=== PATIENT | male | born 1945 | race Caucasian/White ===

== ENCOUNTER 2018-10-26 00:34 | Inpatient (IN) ==
[2018-10-26] MEDS ORDERED: DUONEB (A & A) INH ONE (01:19)
--- NOTE | 2018-10-26 01:28 | PROVIDER DOCUMENTATION ---
This chart was entered by Nandini Blanc Scribe, acting as scribe for Ajit Minor MD. HPI-Rash/Wound/ReCheck - General Chief Complaint: Shortness of Breath Stated Complaint: SOB/CHF/COPD Time Seen by Provider: 10/26/18 01:08 Source: patient Allergies/Adverse Reactions: Allergies Allergy/AdvReac Type Severity Reaction Status Date / Time codeine Allergy Unknown VOMITING Verified 10/24/18 10:20 carvedilol [From Coreg] Allergy ANAPHYLAXIS Verified 10/24/18 10:20 levofloxacin [From Levaquin] Allergy HIVES Verified 10/24/18 10:20 doxycycline AdvReac NAUSEA/VOMI Verified 10/24/18 10:20 TING Home Medications: Home Medication List Medication Instructions Recorded Confirmed Last Taken Type Prednisone 10 mg PO DAILY 01/14/15 10/26/18 01/20/16 History Spironolactone [Aldactone] 25 mg PO DAILY #30 tablet 05/04/17 10/26/18 Unknown Rx Azithromycin [Zithromax] 500 mg PO DAILY #7 tab 10/24/18 10/26/18 Unknown Rx Apixaban [Eliquis] 5 mg PO BID 10/26/18 10/26/18 Unknown History Bisoprolol Fumarate 10 mg PO BID 10/26/18 10/26/18 Unknown History Ezetimibe 10 mg PO DAILY 10/26/18 10/26/18 Unknown History Montelukast Sodium 10 mg PO DAILY 10/26/18 10/26/18 Unknown History Simvastatin 80 mg PO DAILY 10/26/18 10/26/18 Unknown History - History of Present Illness-Dermatology Nature of Presenting Problem: 73 yom with history of atrial fibrillation, CAD, COPD,tobacco abuse (2ppd), and HTN complaining of worsening sob,fever, and productive yellow cough. pt was seen [address] grady and dx w/copd exacerbation. pt was given steroid and zpack and has had no relief. pt uses nebulizer but no home o2. pt pcp is dr. jaimes. pt denies nvd, chills and cp. Review of Systems - Adult - REVIEW OF SYSTEMS - ADULT Constitutional: reports: see HPI, chills, fever (low grade). denies: fatique, night sweats Eyes: reports: no symptoms reported. denies: dry eyes, double vision, eye pain Ears, Nose, Mouth & Throat: reports: no symptoms reported. denies: ear discharge, ear pain, sinus problem, throat pain, throat swelling Cardiovascular: reports: no symptoms reported. denies: chest pain, heart murmur, poor circulation Respiratory: reports: see HPI, cough, excessive sputum production, shortness of breath Gastrointestinal: reports: no symptoms reported Genitourinary: reports: no symptoms reported Musculoskeletal: reports: no symptoms reported Integumentary: reports: no symptoms reported Neurological: reports: no symptoms reported Psychiatric: reports: no symptoms reported Endocrine: reports: no symptoms reported Hematologic/Lymphatic: reports: no symptoms reported Allergic/Immunologic: reports: no symptoms reported All Other Systems: Reviewed and Negative Past History - Adult - PAST MEDICAL HISTORY-ADULT Review of Records: reports: Old Records Reviewed, Nursing Assessment Review, Medications Reviewed, Social history reviewed & non-contributory. Major Childhood Illnesses: reports: denies history Cardiovascular: reports: A-Fib, arrhythmia (Irregular, irregular), CAD, HTN, hyperlipidemia Respiratory: reports: COPD Gastrointestinal: reports: GERD Obstetrical/Gynecological: reports: denies history Genitourinary: reports: denies history Musculoskeletal: reports: other (neuropathy in bilateral hands and feet) Neurological: reports: denies history Psychiatric: reports: denies history Endocrine/Immune: reports: denies history Other Conditions: reports: denies history - PRIOR SURGERIES/PROCEDURES Surgical/Procedure History: reports: CABG, orthopedic (extremity), back/neck - IMMUNIZATION STATUS Childhood Immunizations: See Nurse Assessment Flu Vaccine: See Nurse Assessment - FAMILY HISTORY Family History: reviewed, not pertinent - SOCIAL HISTORY Smoking: cigarettes, greater than 1 pack/day Provider spent 3-5 mins advising pt. on dangers of tobacco.: Discussed manners to quit use, and f/u contacts for add'l counseling. Substance Use: alcohol Alcohol Use Frequency: occasionally Physical Exam-General - PHYSICAL EXAM-ADULT Initial Vital Signs Reviewed: Yes - CONSTITUTIONAL General Appearance: alert, mild distress, other (nondiaphoretic). negative: slow to respond, obtunded, combative - EYES Eyes: PERRL/EOMI, pink conjunctivae - HEAD, EARS, NOSE, MOUTH & THROAT HENMT: normocephalic/atraumatic, moist mucous membranes, normal ENT inspection - NECK Neck: non-tender, full range of motion, supple, normal inspection - RESPIRATORY Respiratory: chest non-tender, no pleuratic chest pain, no respiratory distress, no accessory muscle use, wheezing (diffused bilat). negative: lungs clear, accessory muscle use, crackles, rales - CARDIOVASCULAR Cardiovascular: normal peripheral pulses, regular rate, rhythm - GASTROINTESTINAL (ABDOMEN) Abdominal Exam: normal bowel sounds, non tender, soft - LYMPHATIC Lymphatic: no adenopathy - MUSCULOSKELETAL Back Exam: normal inspection, no CVA tenderness, no vertebral tenderness Extremity: normal range of motion, non-tender, normal inspection Peripheral Pulses: radial (R): 2+, radial (L): 2+ - SKIN Integumentary: normal color, normal turgor, warm/dry - NEUROLOGIC Neurologic: grossly normal, no motor/sensory deficits - PSYCHIATRIC Psych/Mental Status: normal thought content, normal thought process, oriented x 3, anxious Progress - PLAN OF CARE/RESULTS Progress/Plan/Lab Results: Vital Signs - 8 hr 10/26/18 00:45 10/26/18 01:00 10/26/18 01:03 Temperature 99.4 F Pulse Rate 104 H 107 H 101 H Respiratory Rate 20 13 31 H Blood Pressure 159/79 105/61 123/60 O2 Sat by Pulse Oximetry 88 L 91 L 92 L 10/26/18 01:10 10/26/18 01:20 10/26/18 01:30 Temperature Pulse Rate 104 H 105 H 94 H Respiratory Rate 28 H 34 H 30 H Blood Pressure O2 Sat by Pulse Oximetry 94 L 95 94 L 10/26/18 01:48 10/26/18 01:49 10/26/18 01:51 Temperature Pulse Rate 109 H 94 H 104 H Respiratory Rate 20 29 H Blood Pressure 144/75 O2 Sat by Pulse Oximetry 93 L 94 L 10/26/18 02:00 10/26/18 02:03 10/26/18 02:10 Temperature Pulse Rate 112 H 103 H 111 H Respiratory Rate 32 H 31 H 24 Blood Pressure 139/85 O2 Sat by Pulse Oximetry 92 L 93 L 93 L 10/26/18 02:20 10/26/18 02:22 10/26/18 02:30 Temperature Pulse Rate 115 H 85 137 H Respiratory Rate 23 16 32 H Blood Pressure O2 Sat by Pulse Oximetry 98 93 L 97 10/26/18 02:40 10/26/18 02:50 10/26/18 03:00 Temperature Pulse Rate 165 H 154 H Respiratory Rate 30 H Blood Pressure O2 Sat by Pulse Oximetry 92 L 91 L 93 L 10/26/18 03:03 10/26/18 03:10 Temperature Pulse Rate 121 H 118 H Respiratory Rate 33 H 31 H Blood Pressure 142/81 O2 Sat by Pulse Oximetry 94 L 94 L 10/26/18 02:11 Influenza Screen - Final Nasopharyngeal Laboratory Results - last 24 hr 10/26/18 10/26/18 10/26/18 02:00 02:11 02:11 WBC 14.83 H RBC 4.63 L Hgb 15.0 Hct 45.0 MCV 97.2 MCH 32.4 H MCHC 33.3 RDW Std Deviation 12.5 Plt Count 291 MPV 8.9 Immature Gran % (Auto) 0.4 Neut % (Auto) 81.6 H Lymph % (Auto) 8.8 L [place] % (Auto) 9.1 Eos % (Auto) 0.0 Baso % (Auto) 0.1 Immature Gran # (Auto) 0.06 H Neut # (Auto) 12.10 H Lymph # (Auto) 1.30 [place] # (Auto) 1.35 H Eos # (Auto) 0.00 Baso # (Auto) 0.02 Specimen Type ARTERIAL Sample Site R RADIAL pH 7.45 pCO2 37 pO2 59 L HCO3 26.2 H Base Excess 1.9 Oxyhemoglobin 89.6 L* ABG O2 Sat (Calculated) 18.5 ABG O2 Saturation 93.2 L ABG Carboxyhemoglobin 3.50 H ABG Methemoglobin 0.4 Taco Test YES A-a O2 Difference 94.0 Total Hemoglobin 14.7 Lactate 1.40 Liter Flow 2.0 Blood Gas Modality CANNULA FiO2 % 28.0 Sodium 135 L Potassium 4.7 D Chloride 96 L Carbon Dioxide 25 Anion Gap 14 BUN 23 H Creatinine 1.0 Estimated GFR/1.73 m2 > 60 BUN/Creatinine Ratio 23 Glucose 115 H Calculated Osmolality 275 Calcium 9.2 Total Bilirubin 1.08 H AST 33 ALT 26 Alkaline Phosphatase 64 Creatine Kinase 113 Troponin T Total Protein 7.0 Albumin 4.1 Globulin 2.9 Albumin/Globulin Ratio 1.4 10/26/18 02:11 WBC RBC Hgb Hct MCV MCH MCHC RDW Std Deviation Plt Count MPV Immature Gran % (Auto) Neut % (Auto) Lymph % (Auto) [place] % (Auto) Eos % (Auto) Baso % (Auto) Immature Gran # (Auto) Neut # (Auto) Lymph # (Auto) [place] # (Auto) Eos # (Auto) Baso # (Auto) Specimen Type Sample Site pH pCO2 pO2 HCO3 Base Excess Oxyhemoglobin ABG O2 Sat (Calculated) ABG O2 Saturation ABG Carboxyhemoglobin ABG Methemoglobin Taco Test A-a O2 Difference Total Hemoglobin Lactate Liter Flow Blood Gas Modality FiO2 % Sodium Potassium Chloride Carbon Dioxide Anion Gap BUN Creatinine Estimated GFR/1.73 m2 BUN/Creatinine Ratio Glucose Calculated Osmolality Calcium Total Bilirubin AST ALT Alkaline Phosphatase Creatine Kinase Troponin T < 0.010 Total Protein Albumin Globulin Albumin/Globulin Ratio Orders Category Date Time Status CHEST-2 VIEWS [RAD] Stat Exams 10/26/18 01:17 Taken ABG [RESP] Routine Lab 10/26/18 02:00 Completed BLOOD CULTURE [BLDCUL] Stat Lab 10/26/18 01:30 Results BNP [PRO B-NATRIURETIC PEPTIDE] Stat Lab 10/26/18 02:11 Received CBC WITH ELECTRONIC DIFF [HEME] Stat Lab 10/26/18 02:11 Completed CK PROFILE [SP CHEM] Stat Lab 10/26/18 02:11 Completed CMP [COMPREHENSIVE METABOLIC PANEL] [CHEM] Stat Lab 10/26/18 02:11 Completed INFLUENZA SCREEN A/B Stat Lab 10/26/18 02:11 Completed TROPONIN T Stat Lab 10/26/18 02:11 Completed Albuterol 2.5MG/Ipratrop 0.5MG [Duoneb (A & A)] Med 10/26/18 01:19 Discontinued 3 ml INH NOW ONE CefTRIAXONE [Rocephin] 1 gm Med 10/26/18 02:50 Discontinued 0.9% Sodium Chloride Inj [Ns] 50 ml IV NOW Diltiazem [Cardizem] Med 10/26/18 02:52 Discontinued 10 mg IV NOW ONE Magnesium Sulfate 1 gm/D5w Med 10/26/18 02:46 Active 1 gm in 100 ml IV NOW Methylprednisolone Sod Succ [Solu-Medrol] Med 10/26/18 02:28 Discontinued 125 mg IV NOW ONE Aerosol Treatments Routine Oth 10/26/18 01:19 Completed Aerosol Treatments Stat Oth 10/26/18 01:19 Completed Oxygen Device Stat Oth 10/26/18 02:47 Active EKG [EKG] Stat Ther 10/26/18 01:18 Ordered EKG [EKG] Stat Ther 10/26/18 02:51 Ordered Result Diagrams: 10/26/18 02:11 10/26/18 02:11 - REASSESSMENT Reassessment #1 Time Reassessed: 02:45 Status: worsening Reassessment Comment: patient has developed worsening atrial fib with rvr, IV cardizem ordered. - EKG 1 Time of EKG reading by physician:: 00:47 EKG Read and Signed by:: Ajit Minor EKG Interpretation (*Must complete 3 of following elements*): Abnormal Rate: 107 Rhythm: Afib w/rvr [place]: normal QRS: normal ST Wave: non-specific ST changes (non specific st and t wave abnormality) - XRAY 1 XRAY Study: Chest XRAY Interpretation: new nodular infiltrate over right upper lung compared to 10/24/18 - CONSULTS/PCP/HOSPITALIST Notification #1 *Consult/PCP/Hospitalist*: Dr. Combs, hospitalist Time Discussed: 03:20 Consult Disposition: Admit Departure - Departure Date of Disposition Decision: 10/26/18 Time of Disposition Decision: 03:24 DIAGNOSIS: Acute exacerbation of chronic obstructive pulmonary disease, Atrial fibrillat ion with RVR, Failure of outpatient treatment Fever Qualifiers: Fever type: unspecified Qualified Code(s): R50.9 - Fever, unspecified Disposition: ADMITTED INPATIENT 09 Certified Medical Emergency: Emergent Condition: Stable Referrals and Follow-Ups: Kenny Jaimes MD [Primary Care Provider] - - Critical Care Note This patient required my direct & personal management of CC.: Yes Attestation - Physician/ JAMAL Attestation Patient care was provided by Advanced Practice Provider:: No The physician spent face to face time with patient:: Yes Advanced Practice Provider documentation review:: Supervising physician onsite and consulted in the evaluation and care of this patient. The physician did have a face to face encounter with the patient. This chart was documented by the indicated scribe, (Nandini Blanc Scribe) and accurately reflects the services I performed and decisions made by me, Ajit Minor MD, as attested by the provider's signature.
[2018-10-26 02:15] LABS: ALLEN TEST YES; BE 1.9 mmoll (-3.0-3.0); BLOOD TYPE ARTERIAL; HCO3-(ACT) 26.2 mmoll (20.0-26.0); METHB 0.4 % (0.0-1.5); O2(CT) 18.5 mL/dL (15.0-23.0); PCO2(98.6) 37 mmHg (35-45); PO2(98.6) 59 mmHg (60-100); SAMPLE BLOOD; SAO2 93.2 % (95.0-100.0); THB 14.7 g/dL (11.5-17.4); pH(98.6) 7.45 (7.35-7.45)
[2018-10-26 02:17] LABS: MODALITY CANNULA
[2018-10-26 02:18] LABS: O2HB 89.6 % (95.0-99.0)
[2018-10-26] MEDS ORDERED: SOLU-MEDROL IV ONE (02:28)
[2018-10-26 02:31] LABS: BASO# 0.02 X1000 (0.0-0.2); BASO% 0.1 % (0.0-0.8); IMM GRAN# 0.06 X1000 (0.0-0.04); IMM GRAN% 0.4 % (0.0-0.5); LYMPH% 8.8 % (20.5-51.1); MCH 32.4 PG (27-31); MCHC 33.3 g/dL (33-37); MCV 97.2 FL (81-99); MONO# 1.35 X1000 (0.11-0.59); MONO% 9.1 % (1.7-9.3); MPV 8.9 FL (7.4-10.4); NEUT% 81.6 % (42.2-75.2); PLT 291 X1000 (130-400); RBC 4.63 XMIL (4.7-6.1); RDW 12.5 % (11.5-14.5); WBC 14.83 X1000 (4.8-10.8)
[2018-10-26] MEDS ORDERED: MAGNESIUM SULFATE 1 GM/D5W 1 GM/100 ML IVPB IV ONE (02:46)
[2018-10-26] MEDS ORDERED: ROCEPHIN 1 GM in NS 50 ML IV ONE (02:50)
[2018-10-26] MEDS ORDERED: CARDIZEM IV ONE (02:52)
[2018-10-26 03:05] LABS: AGAP 14; ALB/GLOB RATIO 1.4; ALBUMIN 4.1 g/dL (3.5-5.0); ALKALINE PHOSPHATASE 64 U/L (32-122); BUN 23 mg/dL (8-22); CALCIUM 9.2 mg/dL (8.8-10.2); CHLORIDE 96 mmol/L (98-107); CK PROFILE 113 U/L (24-204); COSMO 275; ESTIMATED GFR > 60; GLUCOSE 115 mg/dL (70-104); GOT 33 U/L (10-34); GPT 26 U/L (10-44); POTASSIUM 4.7 mmol/L (3.5-5.1); SODIUM 135 mmol/L (136-145); TCO2 25 mmol/L (25-35); TOTAL BILIRUBIN 1.08 mg/dL (0.20-1.00)
--- NOTE | 2018-10-26 04:22 | HISTORY AND PHYSICAL ---
PRIMARY CARE PHYSICIAN: Dr. Jaimes. CHIEF COMPLAINT: Shortness of breath and coughing x1 week. HISTORY OF PRESENTING ILLNESS: A 73-year-old male with a history of COPD, hypertension, coronary artery disease, and atrial fibrillation, who had presented to the emergency department with 1-week history of worsening shortness of breath. The patient states that he was having difficulty breathing and he was coughing more and his symptoms were worsening. He was evaluated in the emergency department, he was dyspneic, he was put on supplemental oxygen. He received duo nebs and he had some only minimal improvement. The patient also was tachycardic in the ED, he seemed to be in atrial fibrillation with rapid ventricular response. He was given IV Cardizem and his rate had decreased. Due to his presenting symptoms, he will require admission for further management. At the time of my examination, patient denied any headache, fever, chills, nausea, vomiting, diarrhea, chest pain, hemoptysis, melena, or any weight changes, but complained of shortness and coughing. PAST MEDICAL HISTORY: Includes COPD, hypertension, hyperlipidemia, atrial fibrillation, coronary artery disease. PAST SURGICAL HISTORY: Back surgery, right knee surgery, coronary bypass. ALLERGIES: Codeine, Carvedilol, levofloxacin, doxycycline. MEDICATIONS: Current medications include Eliquis 5 mg p.o. b.i.d., Zithromax 500 mg p.o. daily, bisoprolol 10 mg p.o. b.i.d., singular 10 mg p.o. daily, prednisone 20 mg p.o. daily, simvastatin 80 mg p.o. daily, spironolactone 25 mg p.o. daily. SOCIAL HISTORY: A 50+ pack-years history of smoking. Denies any history of alcohol or illicit drug use. FAMILY HISTORY: No history of coronary disease. REVIEW OF SYSTEMS: Fourteen-point review of system as listed in HPI. Other systems negative. PHYSICAL EXAMINATION: GENERAL: Cooperative, friendly male, still in some mild respiratory distress. VITAL SIGNS: Temperature 99.4 degrees, pulse 104, respirations 20, blood pressure 159/79. HEENT: Atraumatic, normocephalic. Extraocular movements intact. PERRLA. NECK: No masses. CHEST: Rhonchi. CARDIOVASCULAR: Regular rate and rhythm. ABDOMEN: Soft. Positive bowel sounds. EXTREMITIES: No edema. NEUROLOGIC: He is awake, alert, oriented x3. GENITOURINARY: No bladder distention. SKIN: Warm. LABORATORIES AND STUDIES: WBCs 14.83, hemoglobin 15.1, hematocrit 45.0, platelets 291,000. Sodium 135, potassium 4.7, chloride 96, CO2 of 25, BUN is 23, creatinine is 1.0. Glucose is 145. ASSESSMENT: A 73-year-old male with a history of chronic obstructive pulmonary disease, hypertension, chronic atrial fibrillation, and coronary disease, who had presented to emergency department with 1-week history of worsening shortness of breath. He was evaluated in the emergency department. Clinically, seemed that the patient was having an exacerbation of his chronic obstructive pulmonary disease. He was also in atrial fibrillation with rapid ventricular response. He was given IV Cardizem and he will require admission for further management. 1. Chronic obstructive pulmonary disease exacerbation. 2. Chronic atrial fibrillation with rapid ventricular response. 3. Coronary artery disease. 4. Hypertension. PLAN: 1. We will admit patient to [facility]. 2. We will continue with duo nebs, IV Solu-Medrol, IV antibiotics. 3. We will monitor patient on telemetry, if his rate increases will start Cardizem drip. 4. We will trend his troponin's. 5. Monitor blood pressure. Resume antihypertensive agent. 6. The patient is on Eliquis and this will suffice for DVT prophylaxis. 7. We will continue to follow and reassess. Make further recommendation based on patient's clinical course. cc: Luis M Combs MD MTDD
[2018-10-26] MEDS: ZITHROMAX 500 MG/NS 500 MG/250 ML IVPB IV SCH (05:03)
[2018-10-26] MEDS ORDERED: NICODERM PATCH TD ONE (05:08)
--- NOTE | 2018-10-26 06:00 | Diag Imaging Result Doc PS360 ---
EXAM: CHEST-2 VIEWS HISTORY: sob TECHNIQUE: Chest two views COMPARISON: 10/24/2018 FINDINGS: The lungs remain well expanded. Sternal wires are present. No cardiomegaly. No pleural effusions. Worsening bilateral nodular infiltrates. IMPRESSION: Interval worsening. Electronically signed by Peterson Jacob 10/26/2018 5:57 AM
--- NOTE | 2018-10-26 08:07 | EKG Report ---
Test Performed on : 10/26/2018 00:46:17 AM Test Reason : pain Blood Pressure : / mmHG Vent. Rate : 107 BPM Atrial Rate : 394 BPM P-R Int : 000 ms QRS Dur : 076 ms QT Int : 336 ms P-R-T Axes : 000 033 184 degrees QTc Int : 448 ms Atrial fibrillation. with rapid ventricular response. Nonspecific ST and T wave abnormality Abnormal ECG When compared with ECG of 24-OCT-2018 10:01, (Unconfirmed) No significant change was found Unconfirmed Result
--- NOTE | 2018-10-26 08:07 | EKG Report ---
Test Performed on : 10/26/2018 03:03:58 AM Test Reason : pain Blood Pressure : / mmHG Vent. Rate : 123 BPM Atrial Rate : 117 BPM P-R Int : 000 ms QRS Dur : 084 ms QT Int : 312 ms P-R-T Axes : 000 050 141 degrees QTc Int : 446 ms Atrial fibrillation. with rapid ventricular response. Nonspecific ST and T wave abnormality Abnormal ECG When compared with ECG of 26-OCT-2018 00:46, (Unconfirmed) No significant change was found Unconfirmed Result
[2018-10-26] MEDS: DUONEB (A & A) INH SCH ×5 (08:14→22:55)
[2018-10-26 08:16] LABS: INR 1.38; PROTIME 18.1 Seconds (11.0-16.0)
[2018-10-26 08:17] LABS: PTT 31.2 Seconds (22.3-41.8)
--- NOTE | 2018-10-26 09:16 | PROGRESS NOTE ---
DATE: 10/26/2018 REASON FOR STUDY: He came into the emergency room early this morning. He is a patient of Dr. Kenny Jaimes. He is complaining of shortness of breath and coughing for about a week. A 73-year- old with history of COPD, hypertension, coronary artery disease, atrial fibrillation. Presented to the emergency room with 1-week history of worsening shortness of breath. States he was having difficulty breathing, coughing more, symptoms worsening. He had wheezing. Evaluated in the emergency department, had some dyspnea, put on supplementary oxygen. He received DuoNebs and had some minimal improvement. The patient also had tachycardia. Seemed to be in atrial fibrillation with rapid ventricular response. He was given IV Cardizem and rate had decreased. Due to his presenting symptoms, admitted him. PAST MEDICAL HISTORY: COPD, hypertension, hyperlipidemia, acute atrial fibrillation, coronary artery disease. PAST SURGICAL HISTORY: 1. Back surgery, right knee pain, coronary bypass. So admitted with COPD exacerbation. 2. Chronic atrial fibrillation with rapid ventricular response. 3. Coronary artery disease. 4. Hypertension. I am not sure if his atrial fib is chronic or not. It was listed as acute and so I will see if we can get some more history. He is on IV Solu-Medrol, getting bronchodilators. The patient was on Eliquis. So I assume he has had atrial fibrillation and he was on anticoagulant for that. OBJECTIVE: Vitals: In the emergency room pulse is 100, respirations 16, blood pressure 126/70. Eyes: Pupils are equal and round. Lungs: Clear in all lung lyons. Cardiovascular: Regular rhythm and rate without murmur or S3. Abdomen: Soft. Skin: Warm and dry. ASSESSMENT AND PLAN: 1. Chronic obstructive pulmonary disease exacerbation. Bronchospasm. Seems to be doing better. 2. Chronic atrial fibrillation with rapid ventricular response. He was given some Cardizem. This seems to be better controlled. 3. Coronary artery disease, status post CABG. I do not see evidence of cardiac ischemia at this point. 4. Hypertension. Blood pressures appear well controlled. Review of his orders: Getting albuterol-ipratropium q.4 hours, Eliquis 5 mg b.i.d., Zetia 10 mg a day, methylprednisone 60 mg IV q.8, Singulair 10 mg a day, ceftriaxone 1 g q.24 hours, Zocor 80 mg a day, Aldactone 25 mg a day, azithromycin 500 mg IV q.24 hours. He got a dose of 10 mg of Cardizem IV. He is on nicotine patch 21 mg. Review of his laboratory, white count 14,830, hematocrit 45, platelet count 291,000. Chemistries unremarkable. Sodium 135, potassium 4.7, chloride 96, BUN 23, and creatinine 1. Troponin was less than 0.01. cc: Taco Ponce MD
[2018-10-26] MEDS: ALDACTONE PO SCH (10:29)
[2018-10-26] MEDS: ZOCOR PO SCH (10:30)
[2018-10-26] MEDS: SINGULAIR PO SCH (10:30)
[2018-10-26] MEDS: ZETIA PO SCH (10:30)
[2018-10-26] MEDS: ZEBETA PO SCH ×2 (10:31→20:15)
[2018-10-26] MEDS: ELIQUIS PO SCH ×2 (10:31→20:16)
--- NOTE | 2018-10-26 10:51 | CARDIOLOGY CONSULTATION ---
DATE: 10/26/2018 CHIEF COMPLAINT ON PRESENTATION: Shortness of breath, coughing. HISTORY OF PRESENT ILLNESS: Mr. Ramachandran is a 73-year-old male with a history of chronic atrial fibrillation maintained on Eliquis as well as COPD and coronary disease. He presented for evaluation of shortness of breath. This has been going on since last . He reports increasing cough as well as increased productiveness of cough. No orthopnea. No chest pain. He denies any palpitations. He reports a lot of wheezing in the interim, as well as attempts at antibiotics and steroids with no improvement. PAST MEDICAL HISTORY: 1. Significant for COPD. 2. Hypertension. 3. Hyperlipidemia. 4. Chronic atrial fibrillation, maintained on Eliquis. 5. Coronary artery disease with history of coronary bypass grafting. SOCIAL HISTORY: 50+ pack year history of smoking. He is . is present in the room. No illicit drugs or alcohol. FAMILY HISTORY: Significant for hypertension. REVIEW OF SYSTEMS: A 10-system review of systems is negative except for those things mentioned in history of present illness. PHYSICAL EXAMINATION: Vitals: The patient is afebrile. His heart rate during this hospitalization has been mainly in the low 100s to 110s. On original presentation, he was in the 130s to 160s. Blood pressure 126/96. General: He is in no acute distress. HEENT: Oropharynx is moist. Poor dentition. Eye examination shows pink conjunctivae. White sclerae. Neck: Examination shows no obvious thyromegaly or thyroid tenderness. Cardiovascular: He sounds to be in irregularly irregular rate and rhythm. Mildly tachycardic. No murmurs. No S3. He has no lower extremity edema. No carotid bruits. His JVP is less than 8. Chest: Exam has marked bilateral end-expiratory wheezes with a prolonged expiratory phase. He has no increased work of breathing. He is speaking in complete sentences. Abdomen: Soft, nontender, nondistended. He has no obvious organomegaly. Skin: Warm and dry throughout without any rashes. Neurological: He is moving all extremities well. He has no lateralizing deficits. Psychiatric: He is alert, oriented, pleasant. He has a normal mood and affect. PERTINENT DATA: His original EKG at 12:46 a.m. this morning shows rapid atrial fibrillation, rate of 107 beats per minute. Subsequent EKG on October 26 at 3:03 a.m. shows rapid atrial fibrillation, rate of 123 beats per minute. His chest x-ray shows worsening bilateral nodular infiltrates. His laboratory data shows a white count of 14.8, hematocrit of 45, platelet count of 291,000 his sodium is 135, potassium 4.7, BUN 23, creatinine is 1. His liver enzymes are unremarkable. His proBNP is mildly elevated at 1206. His cardiac enzymes are negative times multiple sets, including today as well as on 10/24. ASSESSMENT: Mr. Ramachandran is a 73-year-old gentleman with chronic atrial fibrillation who presented for what sounds like a worsening COPD exacerbation. PLAN: I have no acute recommendations with his atrial fibrillation. I would continue him on the Eliquis and bisoprolol as he is on at home. His atrial fibrillation seems to be worsening secondary to his current COPD flare up. He had a normal ejection fraction in 2014 and perfusion imaging at that time showed a reversible defect in the inferior and inferior apical wall suggestive of ischemia. However, wall motion was normal in that area. Ejection fraction of 66%. At this time I would recommend treatment of his COPD exacerbation and with improvement in his lung function, his atrial fibrillation should improve as well. I have no acute recommendations presently. Please contact us if we can be of further assistance with this patient. cc: Tom Ceron MD
[2018-10-26] MEDS: SOLU-MEDROL IV SCH ×2 (11:53→20:15)
[2018-10-26 20:24] LABS: URINE SOURCE CLEAN CATCH
[2018-10-26 20:28] LABS: BILIRUBIN URINE NEGATIVE (NEGATIVE); BLOOD URINE NEGATIVE (NEGATIVE); COLOR YELLOW; GLUCOSE URINE >1000 mg/dL (NEGATIVE); KETONE URINE NEGATIVE (NEGATIVE); LEUKOCYTES URINE NEGATIVE (NEGATIVE); NITRITE URINE NEGATIVE (NEGATIVE); PROTEIN URINE TRACE mg/dL (NEGATIVE); SP GRAVITY URINE 1.013; TURBIDITY URINE CLEAR (CLEAR); UROBILINOGEN URINE 2 mg/dL (NORMAL)
[2018-10-26 20:29] LABS: UR EPITHELIAL CELLS <10 /HPF (<10); URINE BACTERIA NEGATIVE /HPF; URINE RBC <10 /HPF (<10); URINE WBC <10 /HPF (<10)
[2018-10-27] MEDS: SOLU-MEDROL IV SCH ×3 (03:17→20:33)
[2018-10-27] MEDS: ZITHROMAX 500 MG/NS 500 MG/250 ML IVPB IV SCH (03:17)
[2018-10-27] MEDS: ROCEPHIN 1 GM in NS 50 ML IV SCH (03:17)
[2018-10-27] MEDS: DUONEB (A & A) INH SCH ×6 (03:29→23:30)
[2018-10-27 05:45] LABS: BASO# 0.01 X1000 (0.0-0.2); BASO% 0.1 % (0.0-0.8); EOS# 0.05 X1000 (0.0-0.7); EOS% 0.3 % (0.0-10.0); HEMATOCRIT 41.5 % (42.0-52.0); HEMOGLOBIN 13.8 g/dL (14.0-18.0); IMM GRAN# 0.13 X1000 (0.0-0.04); IMM GRAN% 0.8 % (0.0-0.5); LYMPH# 0.71 X1000 (1.2-3.4); LYMPH% 4.6 % (20.5-51.1); MCH 32.5 PG (27-31); MCHC 33.3 g/dL (33-37); MCV 97.9 FL (81-99); MONO# 1.19 X1000 (0.11-0.59); MONO% 7.7 % (1.7-9.3); MPV 8.9 FL (7.4-10.4); NEUT# 13.31 X1000 (1.4-6.5); NEUT% 86.5 % (42.2-75.2); PLT 297 X1000 (130-400); RBC 4.24 XMIL (4.7-6.1); RDW 12.3 % (11.5-14.5)
[2018-10-27 05:49] LABS: AGAP 11; BUN 27 mg/dL (8-22); CHLORIDE 102 mmol/L (98-107); COSMO 287; CREATININE 0.8 mg/dL (0.7-1.2); ESTIMATED GFR > 60; GLUCOSE 175 mg/dL (70-104); POTASSIUM 4.5 mmol/L (3.5-5.1); SODIUM 139 mmol/L (136-145); TCO2 26 mmol/L (25-35)
[2018-10-27 05:57] LABS: BANDS 1 % (0-1); LYMPHS 2 % (21-51); MONO 8 % (1-9); SEGS 89 % (42-75)
[2018-10-27] MEDS: SINGULAIR PO SCH (08:27)
[2018-10-27] MEDS: ZOCOR PO SCH (08:27)
[2018-10-27] MEDS: ELIQUIS PO SCH ×2 (08:27→20:33)
[2018-10-27] MEDS: ZEBETA PO SCH ×2 (08:27→20:33)
[2018-10-27] MEDS: ALDACTONE PO SCH (08:27)
[2018-10-27] MEDS: ZETIA PO SCH (08:27)
--- NOTE | 2018-10-27 08:28 | PROGRESS NOTE ---
DATE: 10/27/2018 SUBJECTIVE: Mr. Ramachandran says his breathing is better but still does not feel like he is getting a deep breath. He can still hear some inspiratory and expiratory wheezing, though he appears comfortable. He is sitting up in a recliner. He remains afebrile. PHYSICAL EXAMINATION: Temperature 98 degrees, pulse 84, respirations 16, blood pressure 123/76. Pupils are equal and round. Cardiovascular Examination: Regular rhythm and rate without murmur or S3. PMI is nondisplaced. Abdomen is soft. Skin is warm and dry. Urine output 1200 mL. Lungs are clear in all lung lyons but you can hear inspiratory and expiratory tightness, kind of diffuse. CVP appears to be less than 6 cm. LABORATORY DATA: Reviewed labs from yesterday. White count 15,400, hematocrit was 41, platelet count 297,000. Sodium 139, potassium 4.5, chloride 102, BUN 27, creatinine 0.8. Urinalysis unremarkable. Blood gases reviewed from the , pH was 7.45, pCO2 37, PO2 was 59 so predominantly hypoxemic respiratory dysfunction or failure. Chest x-ray done yesterday, interval worsening of bilateral nodular infiltrate. ASSESSMENT AND PLAN: 1. Chronic atrial fibrillation. Presented with what sounds like worsening chronic obstructive pulmonary disease exacerbation, hypoxemic respiratory failure. His rate appears to be controlled. Continue his Eliquis and bisoprolol which he takes at home. His normal ejection fraction which was measured in 2014 and perfusion imaging showed reversible defect in the inferior and inferior apical wall suggestive of ischemia. However, wall motion was normal in this area. Ejection fraction of 66%. We will see how we improve in his chronic obstructive pulmonary disease air exchange. 2. Chronic obstructive pulmonary disease exacerbation, nonspecific nodules on his chest x-ray. He is on methylprednisone 60 mg intravenous every 8, Singulair 10 mg a day, and azithromycin. We will continue the ceftriaxone 1 g every 24 hours. 3. His lab, mild leukocytosis but he is on Solu-Medrol. Electrolytes look good. Renal function looks good. Blood sugars 194, 175. I do not see any change at this present time. We will check another chest x-ray in the morning. I will put him on a steroid inhaler. We will use Advair 250/50 one puff twice a day. cc: Taco Ponce MD
[2018-10-27] MEDS ORDERED: MILK OF MAGNESIA PO PRN (11:38)
[2018-10-27] MEDS: MIRALAX PO SCH (12:26)
[2018-10-27] MEDS: NICODERM PATCH TD SCH (12:26)
[2018-10-27] MEDS ORDERED: PRILOSEC PO ONE (12:36)
[2018-10-28] MEDS: ROCEPHIN 1 GM in NS 50 ML IV SCH (02:58)
[2018-10-28] MEDS: ZITHROMAX 500 MG/NS 500 MG/250 ML IVPB IV SCH (02:59)
[2018-10-28] MEDS: SOLU-MEDROL IV SCH ×2 (02:59→14:09)
[2018-10-28] MEDS: DUONEB (A & A) INH SCH ×3 (03:30→11:15)
[2018-10-28] MEDS: PRILOSEC PO SCH ×2 (05:27→06:00)
--- NOTE | 2018-10-28 08:07 | DISCHARGE SUMMARY ---
ADMISSION DATE: 10/26/2018 DISCHARGE DATE: 10/28/2018 PRIMARY CARE PHYSICIAN: Dr. Kenny Jaimes. HISTORY: This a 73-year-old male with history of COPD, hypertension, coronary artery disease and atrial fibrillation who presented to the emergency department with 1-week history of worsening shortness of breath. He was having difficulty breathing, was coughing more and symptoms worsened. Evaluated in the emergency department, was dyspneic, put on supplemental oxygen. He received some DuoNebs, had only minimal improvement, a little bit of tachycardia and appeared to be in atrial fibrillation with rapid ventricular response. He was given IV Cardizem. His rate was controlled and he was admitted to the hospital. PAST MEDICAL HISTORY: Chronic obstructive pulmonary disease, hypertension, hyperlipidemia, atrial fibrillation, coronary artery disease. PAST SURGICAL HISTORY: Back surgery, right knee surgery, and coronary artery bypass. HOSPITAL COURSE: So, admitted with COPD and exacerbation of COPD and bronchial irritation, also chronic atrial fibrillation with rapid response and underlying history of coronary artery disease and hypertension. He showed steady improvement in his subjective dyspnea, as well as his moving air. Cardiology was consulted and they felt his chronic atrial fib seemed to be controlled and thought it was more consistent with COPD exacerbation. It was felt he was better, wanted to go home and ready go home on 10/28/2018. DISCHARGE MEDICATIONS: We will continue Eliquis 5 mg twice a day, Zebeta 10 mg b.i.d., Zetia 10 mg a day. He was on Solu-Medrol and I put him on a Medrol Dosepak, Singulair 10 mg a day, NicoDerm patch 21 mg a day. I gave him 4 weeks supply. Prilosec 20 mg a day, MiraLAX 17 g daily, Zocor 80 mg a day and Aldactone 25 mg a day. He was on prednisone before maintenance, so we will do a Medrol Dosepak and then put him back on the 10 mg a day for his COPD. It does not appear that he will need supplementary oxygen and I will put him on a steroid inhaler hopefully, those are difficult to afford but I will give him a prescription for steroid inhaler. cc: Taco Ponce MD
[2018-10-28] MEDS: ZEBETA PO SCH (09:38)
[2018-10-28] MEDS: NICODERM PATCH TD SCH (09:38)
[2018-10-28] MEDS: SINGULAIR PO SCH (09:38)
[2018-10-28] MEDS: MIRALAX PO SCH (09:38)
[2018-10-28] MEDS: ALDACTONE PO SCH (09:39)
[2018-10-28] MEDS: ZETIA PO SCH (09:39)
[2018-10-28] MEDS: ELIQUIS PO SCH (09:39)
[2018-10-28] MEDS: ZOCOR PO SCH (09:39)
--- NOTE | 2018-10-28 10:09 | Diag Imaging Result Doc PS360 ---
CHEST-2 VIEWS - 10/28/2018 INDICATION: copd exacerbation COMPARISON: 10/26/2018 FINDINGS: There are stable bilateral ill-defined nodular infiltrates. Heart at least two in the right lung and one in the left. Heart size and pulmonary vascularity is top normal. No pneumothorax or pleural effusion. IMPRESSION: Bilateral nodular infiltrates. This may represent bronchopneumonia or septic emboli. Follow-up recommended. Electronically signed by Tevin Vee 10/28/2018 10:06 AM
[2018-10-28 11:38] VITALS: BP 155/69
== END 2018-10-28 15:45 | disposition home or self-care (01) | DRG 308 ==
LOC: ED 00:34 → EDIPHOLD 04:22 → SUATTDRO 04:22 → 3S 12:01
PROVIDERS: ATTEND Emergency Medicine
CPT/HCPCS: 71020; 71046; 80048; 80053; 81001; 82550; 82805; 82948; 83605; 83880; 84484; 85025; 85610; 85730; 87040; 87275; 87276; 87804; 93005; 94640; 94761; 96365; 96367; 96375; 96376; 99284; 99285; A9270; J0456; J0696; J2930; J3475; XXXXX